=== PATIENT | male | born 1960 | race Caucasian/White ===

== ENCOUNTER 2021-09-04 20:49 | Observation (INO) ==
[2021-09-04] MEDS ORDERED: SODIUM CHLORIDE 0.9% 500 ML IV STA (20:53)
--- NOTE | 2021-09-04 20:59 | Emergency Department Note ---
Impression & Plan Syncope, Dehydration, Hypotension, Dizziness ED Provider Note NAME: SOPHIE SANCHEZ AGE: 61 SEX: M : 1960 ARRIVES VIA: Ambulance INFORMANT: Patient ED PROVIDER(S): Chuckie Spaulding DO CHIEF COMPLAINT: syncope HPI: Patient is a 61-year-old male who presents to the ER for a syncopal episode. He was working outside all day at his mother's house and they finally went inside after working to eat dinner. He started to become lightheaded and passed out. He was passed out for short period of time. His family called EMS. Upon arrival his systolic pressures were in the 80s. After 500 cc of fluid they trended up into the 90s pre-hospital. He still feels a little lightheaded but other then this nothing is bothering him at this time. Denies any headache o r change in vision. No chest pain or shortness of breath. He does feel little lightheaded. No belly pain, nausea, or vomiting. He did have an episode of diarrhea. He was laid on the ground from a sitting position. He did not fall or hit or hit his head. ROS: See above HPI for pertinent positives & negatives. A total of 10 systems reviewed and were otherwise negative. PAST MEDICAL HISTORY:See Below PAST SURGICAL HISTORY:See Below FAMILY HISTORY:See Below SOCIAL HISTORY:See Below HOME MEDICATIONS:See Below ALLERGIES:See Below VITALS:See Below PHYSICAL EXAMINATION: GENERAL: Sitting up in bed, alert, well appearing, well nourished, no distress, non-toxic EYE EXAM: normal conjunctiva. PERRL and EOM's intact. OROPHARYNX: no exudate, no erythema, lips, buccal mucosa, and tongue normal and mucous membranes are moist NECK: supple, no nuchal rigidity, no adenopathy, non-tender LUNGS: Clear to auscultation. Normal chest wall mechanics HEART: no murmurs, S1 normal and S2 normal ABDOMEN: abdomen soft, non-tender, normo-active bowel sounds, no masses, no rebound or guarding. BACK: Back is symmetrical on inspection and there is no deformity, no midline tenderness, no CVA tenderness. SKIN: no rashes and no bruising UPPER EXTREMITIES: upper extremities are grossly normal. LOWER EXTREMITIES: No pitting edema. NEURO EXAM: Normal sensorium, cranial nerves II-XII intact, normal speech, no weakness of arms, no weakness of legs. No drift. Finger to nose intact. Gross sensation intact. MEDICAL DECISION MAKING: Patient is a 61-year-old male who presents ER for syncopal episode. IV was established blood work was obtained. In route per EMS systolic pressures were in the 80s. Upon arrival here his systolics were in the 90s. Labs show no significant leukocytosis or anemia.. D-dimer was negative. BMP with a creatinine of 1.8 with no old to compare to in favor that this is elevated from his baseline although we do not know what his clear baseline is. Bilirubin and troponin were negative. Lipase was normal. COVID was negative. Chest x-ray was unremarkable. Patient was given IV fluids. Systolic pressures trended up from the 90s to low 100s. EKG was nondiagnostic. He has no chest pain or shortness of breath. Discussed case with hospitalist for observation due to syncope and hypotension with a negative troponin and negative D-dimer. Triage Nursing notes reviewed. Limited review of prior medical records performed Vital Signs: reviewed and remarkable for hypotension Differential diagnosis: Differential diagnosis includes etiologies such as vasovagal event, infection, hypoglycemia, electrolyte abnormalities, cardiac sources, intracerebral event, toxicologic, neurologic, as well as others were entertained. ER treatment provided: See below Diagnostics interpreted by me: ECG: Sinus rhythm rate of 67 Left axis QTC [address] wave changes in septal leads No old to compare to Cardiac Monitoring: An order was placed for continuous cardiac monitoring. The monitor shows a rate of 70 with sinus rhythm. Laboratory studies: As stated above and show below. Imaging studies: Portable AP upright 1 view of the chest was unremarkable Consultation(s): Discussed with Dr. Lino who for admission due to syncope and hypotension. Procedures: none Critical Care: None Past Med/Surg History Social History Smoking Status: Never smoker Feels Safe at Home: Yes Allergies Allergies Allergy/AdvReac Type Severity Reaction Status Date / Time No Known Allergies Allergy Unverified 09/04/21 22:01 Home Meds Home Medications Medication Instructions Recorded Confirmed atorvastatin 10 mg tablet 10 mg PO DAILY 09/04/21 09/04/21 canagliflozin 100 mg tablet 100 mg PO DAILY 09/04/21 09/04/21 (Invokana) cyclobenzaprine 10 mg tablet 10 mg PO HS PRN Muscle Spasm 09/04/21 09/04/21 ferrous sulfate 325 mg (65 mg 325 mg PO DAILY 09/04/21 09/04/21 iron) tablet gabapentin 600 mg tablet 600 mg PO Q12 09/04/21 09/04/21 glipizide 10 mg tablet, extended 10 mg PO BID 09/04/21 09/04/21 release 24 hr lisinopril 10 mg tablet 10 mg PO DAILY 09/04/21 09/04/21 metformin 1,000 mg tablet 1,000 mg PO BID 09/04/21 09/04/21 Results & Data (ED) Vital Signs Vital Signs - 24 hr 09/04/21 20:51 09/04/21 20:51 09/04/21 20:51 Temperature 36.6 C Temperature Source Oral Pulse Rate 68 Pulse Rhythm Regular Respiratory Rate 12 Respiratory Effort / Characteristics Non-Labored Non-Labored Respiratory Depth Normal Normal Blood Pressure 97/54 L Blood Pressure Mean 68 Blood Pressure Position Sitting Pulse Oximetry 94 Oxygen Delivery Method Room Air Room Air Sepsis Recent Fever Within 48 Hours No Sepsis New/Unexplained Change in Mental Status No Sepsis Action Taken by Nursing No Action Required 09/04/21 20:53 09/04/21 20:54 09/04/21 21:00 Temperature Temperature Source Pulse Rate 66 Pulse Rhythm Respiratory Rate 16 Respiratory Effort / Characteristics Respiratory Depth Blood Pressure 93/49 L Blood Pressure Mean 63 Blood Pressure Position Pulse Oximetry 99 97 Oxygen Delivery Method Room Air Sepsis Recent Fever Within 48 Hours Sepsis New/Unexplained Change in Mental Status Sepsis Action Taken by Nursing 09/04/21 21:00 09/04/21 21:30 09/04/21 22:00 Temperature Temperature Source Pulse Rate 68 68 Pulse Rhythm Respiratory Rate 16 18 Respiratory Effort / Characteristics Respiratory Depth Blood Pressure 94/47 L 118/54 L Blood Pressure Mean 62 75 Blood Pressure Position Pulse Oximetry 91 95 96 Oxygen Delivery Method Sepsis Recent Fever Within 48 Hours Sepsis New/Unexplained Change in Mental Status Sepsis Action Taken by Nursing 09/04/21 22:30 09/04/21 22:41 09/04/21 23:00 Temperature Temperature Source Pulse Rate 74 72 Pulse Rhythm Respiratory Rate 16 12 Respiratory Effort / Characteristics Non-Labored Respiratory Depth Blood Pressure 114/52 L 128/61 Blood Pressure Mean 72 83 Blood Pressure Position Pulse Oximetry 98 97 Oxygen Delivery Method Sepsis Recent Fever Within 48 Hours Sepsis New/Unexplained Change in Mental Status Sepsis Action Taken by Nursing 09/04/21 23:30 Temperature Temperature Source Pulse Rate 73 Pulse Rhythm Respiratory Rate 17 Respiratory Effort / Characteristics Respiratory Depth Blood Pressure 149/65 H Blood Pressure Mean 93 Blood Pressure Position Pulse Oximetry 94 Oxygen Delivery Method Sepsis Recent Fever Within 48 Hours Sepsis New/Unexplained Change in Mental Status Sepsis Action Taken by Nursing Laboratory Data Result diagrams: 09/04/21 21:01 09/04/21 21:01 Lab Results 09/04/21 09/04/21 09/04/21 Range/Units 21:01 21: 21:01 WBC 9.41 (4.8-10.8) K/ul RBC 4.40 L (4.63-6.08) M/uL Hgb 12.8 L (14.0-18.0) g/dl Hct 38.2 L (40.1-51.0) % MCV 86.8 (80.0-100.0) fL MCH 29.1 (25.0-34.0) pg MCHC 33.5 (32.0-36.0) g/dL RDW Std Deviation 39.4 (36.4-46.3) fL RDW Coeff of Shane 12.4 (11.5-14.5) % Plt Count 412 H (130-400) K/uL MPV 9.7 (9.4-12.4) fL Immature Gran % (Auto) 0.1 % Neut % (Auto) 41.4 % Lymph % (Auto) 46.9 % [place] % (Auto) 8.8 % Eos % (Auto) 2.3 % Baso % (Auto) 0.5 % Neut # (Auto) 3.89 (1.4-6.5) K/uL Lymph # (Auto) 4.41 H (1.2-3.4) K/uL [place] # (Auto) 0.83 H (0.24-0.82) K/uL Eos # (Auto) 0.22 (0-0.50) K/uL Baso # (Auto) 0.05 (0-0.2) K/uL Immature Gran # (Auto) 0.01 (0.00-0.02) K/uL PT 10.6 (9.0-12.0) Seconds INR 1.0 (0.9-1.1) APTT 22.4 (21.0-31.0) Seconds PTT Ratio 0.8 D-Dimer (0-500) ug/L FEU Sodium 136 (136-145) mmol/L Potassium 3.7 (3.5-5.1) mmol/L Chloride 101 (98-107) mmol/L Carbon Dioxide 24 (21-32) mmol/L Anion Gap 11 (3-11) BUN 20 (6-23) mg/dl Creatinine 1.84 H (0.6-1.4) mg/dl Est Cr Clr Drug Dosing 44.1 ml/min Est GFR ( Amer) 45.2 ml/min Est GFR (Non-Af Amer) 39.0 ml/min BUN/Creatinine Ratio 10.9 (10-20) Glucose 181 H (70-99(Fasting)) mg/dl Calcium 9.1 (8.5-10.1) mg/dl Total Bilirubin 0.5 (0.2-1.0) mg/dl AST 17 (13-39) U/L ALT 16 (7-52) U/L Alkaline Phosphatase 56 (34-104) U/L Troponin I High Sens 5.5 (0-20) pg/ml Total Protein 7.0 (6.0-8.3) gm/dl Albumin 4.0 (3.4-5.0) gm/dl Globulin 3.0 (2.5-4.0) gm/dl Albumin/Globulin Ratio 1.3 (0.9-2) Lipase 17 (11-82) U/L SARS-CoV-2, RNA, NAAT (NEGATIVE) 09/04/21 09/04/21 Range/Units 21:01 21:46 WBC (4.8-10.8) K/ul RBC (4.63-6.08) M/uL Hgb (14.0-18.0) g/dl Hct (40.1-51.0) % MCV (80.0-100.0) fL MCH (25.0-34.0) pg MCHC (32.0-36.0) g/dL RDW Std Deviation (36.4-46.3) fL RDW Coeff of Shane (11.5-14.5) % Plt Count (130-400) K/uL MPV (9.4-12.4) fL Immature Gran % (Auto) % Neut % (Auto) % Lymph % (Auto) % [place] % (Auto) % Eos % (Auto) % Baso % (Auto) % Neut # (Auto) (1.4-6.5) K/uL Lymph # (Auto) (1.2-3.4) K/uL [place] # (Auto) (0.24-0.82) K/uL Eos # (Auto) (0-0.50) K/uL Baso # (Auto) (0-0.2) K/uL Immature Gran # (Auto) (0.00-0.02) K/uL PT (9.0-12.0) Seconds INR (0.9-1.1) APTT (21.0-31.0) Seconds PTT Ratio D-Dimer 330 (0-500) ug/L FEU Sodium (136-145) mmol/L Potassium (3.5-5.1) mmol/L Chloride (98-107) mmol/L Carbon Dioxide (21-32) mmol/L Anion Gap (3-11) BUN (6-23) mg/dl Creatinine (0.6-1.4) mg/dl Est Cr Clr Drug Dosing ml/min Est GFR ( Amer) ml/min Est GFR (Non-Af Amer) ml/min BUN/Creatinine Ratio (10-20) Glucose (70-99(Fasting)) mg/dl Calcium (8.5-10.1) mg/dl Total Bilirubin (0.2-1.0) mg/dl AST (13-39) U/L ALT (7-52) U/L Alkaline Phosphatase (34-104) U/L Troponin I High Sens (0-20) pg/ml Total Protein (6.0-8.3) gm/dl Albumin (3.4-5.0) gm/dl Globulin (2.5-4.0) gm/dl Albumin/Globulin Ratio (0.9-2) Lipase (11-82) U/L SARS-CoV-2, RNA, NAAT NEGATIVE (NEGATIVE) Administered Medications Discontinued Medications Sodium Chloride (Nss) 500 mls @ 999 mls/hr IV .Q31M STA Stop: 09/04/21 21:23 Last Infusion: 09/04/21 22:15 Dose: 0 mls/hr Documented By: Admin: 09/04/21 21:00 Dose: 999 mls/hr Documented By: EMB Imaging Data Radiologist's Impression: Chest X-Ray 09/04/21 20:53 SINGLE VIEW CHEST CLINICAL HISTORY: Atypical chest pain FINDINGS: An AP, portable, upright chest radiograph is obtained. No prior studies are available for comparison at the time of dictation. The cardiomediastinal silhouette is unremarkable. Linear scarring/atelectasis is noted at the left lung base. The lungs and pleural spaces are otherwise clear. No pneumothorax is seen. The bony thorax is grossly intact. IMPRESSION: No active disease in the chest. ACT 112: Negative or not required by law. Electronically signed by: Jr Thao M.D. 09/04/2021 9:25 PM Discharge Plan Visit Data Chief Complaint: Syncope ED Provider: Chuckie Spaulding Discharge Problem: Syncope, Dehydration, Hypotension, Dizziness Forms Stand Alone Forms: [facility] Prescriptions Prescriptions: No Action gabapentin 600 mg tablet 600 mg PO Q12 atorvastatin 10 mg tablet 10 mg PO DAILY metformin 1,000 mg tablet 1,000 mg PO BID lisinopril 10 mg tablet 10 mg PO DAILY Invokana 100 mg tablet 100 mg PO DAILY cyclobenzaprine 10 mg tablet 10 mg PO HS PRN (Reason: Muscle Spasm) glipizide 10 mg tablet extended release 24hr 10 mg PO BID ferrous sulfate 325 mg (65 mg iron) tablet 325 mg PO DAILY Referrals Referrals: Police,Lor [Staff Physician] -
--- NOTE | 2021-09-04 21:26 | XRay Report ---
SINGLE VIEW CHEST CLINICAL HISTORY: Atypical chest pain FINDINGS: An AP, portable, upright chest radiograph is obtained. No prior studies are available for c omparison at the time of dictation. The cardiomediastinal silhouette is unremarkable. Linear scarring /atelectasis is noted at the left lung base. The lungs and pleural spaces are otherwise clear. No pne umothorax is seen. The bony thorax is grossly intact. IMPRESSION: No active disease in the chest. ACT 112: Negative or not required by law. Electronically signed by: Jr Thao M.D. 09/04/2021 9:25 PM
[2021-09-04 21:30] LABS: Basophils # (auto) 0.05 K/uL (0-0.2); Basophils % (auto) 0.5 %; Eosinophils # (auto) 0.22 K/uL (0-0.50); Eosinophils % (auto) 2.3 %; Hematocrit (blood only) 38.2 % (40.1-51.0); Hemoglobin 12.8 g/dl (14.0-18.0); Immature Granulocytes # (auto) 0.01 K/uL (0.00-0.02); Immature Granulocytes % (auto) 0.1 %; Lymphocytes # (auto) 4.41 K/uL (1.2-3.4); Lymphocytes % (auto) 46.9 %; Mean Corpuscular Hemoglobin 29.1 pg (25.0-34.0); Mean Corpuscular Hgb Conc 33.5 g/dL (32.0-36.0); Mean Corpuscular Volume 86.8 fL (80.0-100.0); Mean Platelet Volume 9.7 fL (9.4-12.4); Monocytes # (auto) 0.83 K/uL (0.24-0.82); Monocytes % (auto) 8.8 %; Neutrophils # (auto) 3.89 K/uL (1.4-6.5); Neutrophils % (auto) 41.4 %; Platelet Count 412 K/uL (130-400); RDW Coefficient of Variation 12.4 % (11.5-14.5); RDW Standard Deviation 39.4 fL (36.4-46.3); White Blood Count 9.41 K/ul (4.8-10.8)
[2021-09-04 21:35] LABS: Partial Thromboplastin Ratio 0.8; Partial Thromboplastin Time 22.4 Seconds (21.0-31.0); Prothrombin Time 10.6 Seconds (9.0-12.0)
[2021-09-04 21:36] LABS: Albumin Globulin Ratio 1.3 (0.9-2); BUN Creatinine Ratio 10.9 (10-20); Bilirubin,Total 0.5 mg/dl (0.2-1.0); Calcium 9.1 mg/dl (8.5-10.1); Creatinine Clr Calc Pharmacy 44.1 ml/min; Est GFR (African American) 45.2 ml/min; Potassium 3.7 mmol/L (3.5-5.1)
[2021-09-04 21:39] LABS: Troponin I High Sensitivity 5.5 pg/ml (0-20)
[2021-09-04 21:50] LABS: D Dimer 330 ug/L FEU (0-500)
[2021-09-05] MEDS ORDERED: ACETAMINOPHEN 325 MG TAB PO PRN (01:21)
[2021-09-05] MEDS ORDERED: NITROGLYCERIN SL 0.4 MG/TAB TAB SL PRN (01:21)
[2021-09-05] MEDS ORDERED: CYCLOBENZAPRINE HCL 10 MG TAB PO PRN (01:21)
[2021-09-05] MEDS ORDERED: SODIUM CHLORIDE 0.9% 1000ML 1,000 ML IV SCH (01:21)
[2021-09-05] MEDS ORDERED: POLYETHYLENE (MIRALAX) 17 GM PACK PO PRN (01:21)
[2021-09-05] MEDS ORDERED: ONDANSETRON INJ 2 MG/ML 2 ML VIAL IV PRN (01:21)
[2021-09-05] MEDS ORDERED: GLUCAGON FOR INJ 1 MG VIAL IM PRN (01:30)
[2021-09-05] MEDS ORDERED: GLUCOSE 40% GEL 15 GM TUBE PO PRN (01:30)
[2021-09-05] MEDS ORDERED: CARBOHYDRATES FOR HYPOGLYCEMIA PO PRN (01:30)
[2021-09-05] MEDS ORDERED: DEXTROSE 50% 50 ML SYRINGE IV PRN (01:30)
[2021-09-05] MEDS ORDERED: GLUCOSE 10 TAB/TUBE PO PRN (01:30)
--- NOTE | 2021-09-05 02:12 | History and Physical Report ---
DATE OF ADMISSION: 09/04/2021. CHIEF COMPLAINT: Syncope. HISTORY OF PRESENT ILLNESS: This 61-year-old male with past medical history significant for type 2 diabetes, hypertension, history of alcohol abuse, presents with syncope. The patient says he was out in the sun for the last 2 days. Today evening he went to his mother's place for her birthday, when suddenly he felt weak, tired and passed out for about a couple of minutes, then the family woke him up and he was laid on the couch, but again slipped from the couch, passed out and fell down for 30 seconds. After coming back, he was not confused. He just felt tired and dizzy. When the EMS arrived, his blood pressure was low in the 80s. With a fluid bolus, blood pressure improved, currently he is feeling much better. Denies any chest pain, no shortness of breath, no cough, no fever, no chills, no headache, no blurred visions, no earache, no runny nose, no sore throat, no nausea, no vomiting. Normal bowel and bladder movements. He says he was walking a lot lately and working a lot and thinks he is dehydrated. ALLERGIES: No known drug allergies. PAST MEDICAL HISTORY: As mentioned above. PAST SURGICAL HISTORY: Dental surgery, tonsillectomy and adenoidectomy. MEDICATIONS: The patient is on atorvastatin 10 mg p.o. daily, canagliflozin 100 mg p.o. daily, cyclobenzaprine 10 mg p.o. at bedtime p.r.n., ferrous sulfate 325 mg p.o. daily, gabapentin 600 mg p.o. b.i.d., glipizide 10 mg p.o. b.i.d., lisinopril 10 mg p.o. daily, metformin 1000 mg p.o. b.i.d. FAMILY HISTORY: Significant for mother has arthritis; father has diabetes, heart disorder; mother has hypertension. SOCIAL HISTORY: Single. No smoking. Since 04/2015, not drinking any alcohol. No drug use. REVIEW OF SYSTEMS: As per HPI. Rest of the review of systems is negative. PHYSICAL EXAMINATION: GENERAL: The patient is of moderate build, not in acute distress. VITAL SIGNS: Temperature 36.6, pulse 73, respiratory rate 17, blood pressure 114/65, oxygen 94% on room air. HEENT: Pupils equal, round and reactive to light. Oral mucosa moist. NECK: No JVD, no neck masses. CARDIOVASCULAR: S1 and S2 heard. Regular rate and rhythm. No murmur, no gallop. RESPIRATORY SYSTEM: Normal AP diameter. No accessory muscle use. No wheezing, no crackles. ABDOMEN: Soft, bowel sounds present, nontender, no distention. CENTRAL NERVOUS SYSTEM: Cranial nerves II-XII grossly intact, nonfocal. EXTREMITIES: No edema, no erythema. LABORATORY DATA: WBC 9.4, hemoglobin 12.8, hematocrit 38.2, platelets 412. PT 10.6, INR 1, APTT 22.4. D-dimer 330. Sodium 136, potassium 3.7, chloride 101, bicarbonate 24, BUN 20, creatinine 1.8, serum glucose 181, calcium 9.1, total bilirubin 0.5, AST 17, ALT 16, alkaline phosphatase 56. Troponin I high sensitivity 5.5. Lipase 17. SARS-CoV-2 rapid test negative. IMAGING: CT, chest x-ray: No acute findings. EKG: Normal sinus rhythm at a rate of 67, incomplete right bundle-branch block, left anterior fascicular block. ASSESSMENT AND PLAN: A 61-year-old male who presents with syncope. 1. Syncope: Could be from dehydration. He was hypotensive when the emergency medical services arrived, improved with fluids. We will do orthostatics, currently on normal saline 125 mL per hour. Monitor in the telemetry floor. We will get an echocardiogram and serial cardiac enzymes. If any concern, consult cardiology. 2. Possible acute kidney injury: As per Epic, his creatinine was 0.8 in 2016. Currently, his creatinine is 1.84. Getting fluids. Avoid nephrotoxin. We will follow the laboratories in a.m. 3. Hypertension: Continue to hold lisinopril for now for acute kidney injury and hypotension. 4. Diabetes: Hold his home medication. Place on Lantus sliding scale. Follow blood sugars, follow HbA1c levels. 5. Hyperlipidemia: Continue statin. 6. Deep venous thrombosis prophylaxis: Sequential compression devices for now. DISPOSITION: Observation in [facility]. PT/OT prior to discharge. Social service to help with discharge planning. Job ID: [id number] [facility]
[2021-09-05 05:22] LABS: Basophils # (auto) 0.03 K/uL (0-0.2); Basophils % (auto) 0.4 %; Eosinophils # (auto) 0.13 K/uL (0-0.50); Eosinophils % (auto) 1.7 %; Hematocrit (blood only) 36.8 % (40.1-51.0); Hemoglobin 12.1 g/dl (14.0-18.0); Immature Granulocytes # (auto) 0.02 K/uL (0.00-0.02); Immature Granulocytes % (auto) 0.3 %; Lymphocytes # (auto) 2.53 K/uL (1.2-3.4); Mean Corpuscular Hemoglobin 29.2 pg (25.0-34.0); Mean Corpuscular Hgb Conc 32.9 g/dL (32.0-36.0); Mean Corpuscular Volume 88.9 fL (80.0-100.0); Mean Platelet Volume 9.2 fL (9.4-12.4); Monocytes # (auto) 0.73 K/uL (0.24-0.82); Monocytes % (auto) 9.5 %; Neutrophils # (auto) 4.22 K/uL (1.4-6.5); Neutrophils % (auto) 55.1 %; Platelet Count 299 K/uL (130-400); RDW Coefficient of Variation 12.6 % (11.5-14.5); RDW Standard Deviation 40.8 fL (36.4-46.3); Red Blood Count 4.14 M/uL (4.63-6.08); White Blood Count 7.66 K/ul (4.8-10.8)
[2021-09-05 05:51] LABS: Troponin I High Sensitivity 4.6 pg/ml (0-20)
[2021-09-05 06:16] LABS: BUN Creatinine Ratio 18.1 (10-20); Calcium 8.5 mg/dl (8.5-10.1); Creatinine Clr Calc Pharmacy 63.9 ml/min; Est GFR (African American) 70.7 ml/min; Magnesium 1.8 mg/dl (1.7-2.4)
[2021-09-05] MEDS: INSULIN ASPART PER UNIT SC SCH ×2 (07:30→12:14)
[2021-09-05] MEDS ORDERED: LACTATED RINGER'S 500 ML IV ONE (08:00)
[2021-09-05] MEDS ORDERED: LANTUS PER UNIT CHARGE SQ SCH (09:00)
[2021-09-05] MEDS ORDERED: FERROUS SULFATE 325 MG TAB PO SCH (09:00)
[2021-09-05] MEDS ORDERED: GABAPENTIN 600 MG TAB PO SCH (09:00)
[2021-09-05] MEDS ORDERED: ATORVASTATIN 10 MG TAB PO SCH (09:00)
--- NOTE | 2021-09-05 11:45 | Electrocardiogram Report ---
Test Reason : Blood Pressure : / mmHG Vent. Rate : 067 BPM Atrial Rate : 067 BPM P-R Int : 188 ms QRS Dur : 100 ms QT Int : 420 ms P-R-T Axes : 056 -62 000 degrees QTc Int : 443 ms Poor data quality, interpretation may be adversely affected Normal sinus rhythm RSR' or QR pattern in V1 suggests right ventricular conduction delay Left anterior fascicular block Nonspecific T wave abnormality Abnormal ECG No previous ECGs available Confirmed by Sandip Beckham ([id number]) on 09/05/2021 11:45:08 AM Referred By: REFERRED SELF Confirmed By:Sandip Beckham
--- NOTE | 2021-09-05 14:52 | Discharge Summary ---
Date of Service September 05, 2021 Admission HPI Per Admitting Provider This 61-year-old male with past medical history significant for type 2 diabetes, hypertension, history of alcohol abuse, presents with syncope. The patient says he was out in the sun for the last 2 days. Today evening he went to his mother's place for her birthday, when suddenly he felt weak, tired and passed out for about a couple of minutes, then the family woke him up and he was laid on the couch, but again slipped from the couch, passed out and fell down for 30 seconds. After coming back, he was not confused. He just felt tired and dizzy. When the EMS arrived, his blood pressure was low in the 80s. With a fluid bolus, blood pressure improved, currently he is feeling much better. Denies any chest pain, no shortness of breath, no cough, no fever, no chills, no headache, no blurred visions, no earache, no runny nose, no sore throat, no nausea, no vomiting. Normal bowel and bladder movements. He says he was walking a lot lately and working a lot and thinks he is dehydrated. Admission Exam Per Admitting Provider GENERAL: The patient is of moderate build, not in acute distress. VITAL SIGNS: Temperature 36.6, pulse 73, respiratory rate 17, blood pressure 114/65, oxygen 94% on room air. HEENT: Pupils equal, round and reactive to light. Oral mucosa moist. NECK: No JVD, no neck masses. CARDIOVASCULAR: S1 and S2 heard. Regular rate and rhythm. No murmur, no gallop. RESPIRATORY SYSTEM: Normal AP diameter. No accessory muscle use. No wheezing, no crackles. ABDOMEN: Soft, bowel sounds present, nontender, no distention. CENTRAL NERVOUS SYSTEM: Cranial nerves II-XII grossly intact, nonfocal. EXTREMITIES: No edema, no erythema. Principal Diagnosis dehydration Discharge Exam Constitutional WD/WN, vitals as above Eyes PERRL, conjunctivae normal, anicteric sclerae ENMT external ear and nose normal, oropharynx normal Neck trachea midline, no thyromegaly Respiratory normal respiratory effort, lungs clear to auscultation Cardiovascular RRR, no murmur, no edema Gastrointestinal (Abdomen) normal bowel sounds, soft, nontender, no hepatosplenomegaly Musculoskeletal no cyanosis or clubbing, extremities motor strength 5/5 Skin no rashes, warm and dry Neurologic patellar DTR's 2+ bilat, sensation intact and PERRL, EOMI, accommodation nl, no face palsy, no dysarthria Psychiatric A+Ox3, euthymic affect Discharge Data Allergies Allergy/AdvReac Type Severity Reaction Status Date / Time No Known Allergies Allergy Unverified 09/04/21 22:01 Consultations 09/04/21 21:49 ED Decision to Admit Stat Hospital Course (1) Syncope: (2) Dehydration: (3) Hypotension: Plan his 61-year-old male with past medical history significant for type 2 diabetes, hypertension, history of alcohol abuse, presents with syncope. 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 He had NORBERTO as well which improved with IVF. He also jsut started canagliflozin for his DM2. He denied any prodrome. Trop was negative x3, ECG without ischemic changes, TTE showed G1DD without any RWMA. He was feeling back to baseline walking around the ED and was discharged while holding his canagliflozin until follow up with PCP. Total Time Total Time Spent Total Time Spent (In Minutes): 26 minutes Total Time Includes: Examination of the Patient, Discharge Planning and Medication Reconciliation Discharge Plan Discharge Items Patient Disposition: Home - Self-Care Reason For Visit: SYNCOPE Discharge Diagnosis: dehydration Activity: Resume your previous activity Activity Comment: stay hydrated Non-emergency contact: Primary Care Provider Call non-emergency contact if: you have any medication questions, your symptoms worsen and you have a fever Follow-up/Referrals: Sven Saucedo PA-C [Primary Care Provider] - Diet: Carb Consistent or DM2 and Heart Healthy Addtl Attending Provider Instructions: You were admitted for an episode of syncope or passing out. You had ECG and echocardiogram which were largely unremarkable. Your Echocardiogram showed some thickening of your heart muscle due to hypertension and should follow up with your Primary to continue working on BP control. You should hold your new diabetes medication Invokana (Canagliflozin) until you can follow up with your primary care doctor, continue your other diabetes medications. You can also resume your BP medications on discharge. Please follow up with your primary care doctor this week. Pending Studies at Discharge: No Stand-Alone Forms: [facility], Smoking Cessation Medications and DC Order Prescriptions: Continued gabapentin 600 mg tablet 600 mg PO Q12 atorvastatin 10 mg tablet 10 mg PO DAILY metformin 1,000 mg tablet 1,000 mg PO BID lisinopril 10 mg tablet 10 mg PO DAILY cyclobenzaprine 10 mg tablet 10 mg PO HS PRN (Reason: Muscle Spasm) glipizide 10 mg tablet extended release 24hr 10 mg PO BID ferrous sulfate 325 mg (65 mg iron) tablet 325 mg PO DAILY Discontinued Invokana 100 mg tablet 100 mg PO DAILY Discharge Orders: Discharge Order (Routine); Ordered 09/05/21 Ordered By: Gunnar Figueroa Admission Data Admit Date/Time: 09/04/21 23:25 Attending Provider: Gunnar Figueroa Admit Provider: Darci Moseley Primary Care Provider: Sven Saucedo Other Providers: Darci Moseley Other Interventions: Discharge Summary Assessment (RN) Last Done: 09/05/21 13:26
[2021-09-06 06:26] LABS: Estimated Average Glucose 171 mg/dl; Hemoglobin A1C 7.6 % (4.5-5.6)
== END 2021-09-05 14:30 | disposition home or self-care (01) ==
LOC: ED 20:49 → EDINP 20:49